=== PATIENT | male | born 1955 | race Caucasian/White ===

== ENCOUNTER → 2018-09-30 | Day surgery (SDC) | payer BC ==
--- NOTE | 2018-09-25 12:14 | Diagnostic Imaging Report ---
EXAMINATION: CHEST 2 VIEWS INDICATION: Foot surgery. Preop. COMPARISON: None FINDINGS: TUBES and LINES: None. LUNGS: Lungs are well inflated. Lungs are clear. There is no evidence of pneumonia or pulmonary edema. PLEURA: No pleural effusion or pneumothorax. HEART AND MEDIASTINUM: The cardiomediastinal silhouette is unremarkable. BONES AND SOFT TISSUES: No acute osseous lesion. Soft tissues are unremarkable. Metallic hardware is seen over the lower cervical spine. Surgical clips in the right axillary region. UPPER ABDOMEN: No free air under the diaphragm. IMPRESSION: No acute thoracic abnormality. Signed by: Dr. Rodrigo Cunningham M.D. on 09/25/2018 12:10 PM
[~2018-09-30] MED LIST: BUPIVACAINE 0.25% 30ML SDV INJ ONE; CEFAZOLIN SOD 2 GM/D5W 50ML 50 ML IV ONE; DURAGESIC1 EAC1; FENOPROFEN CAL600 MG PO; FENTANYL CITRATE/PF 100MCG/2 ML INJ ONE; HYDROMORPHONE 2MG/ML 2 MG/ML ML ONE; JALYN 0.5-0.41 EACH PO; LIBRAX CAPSULE1 EACH PO; LIDOCAINE HCL 2% LOCAL INJ 5 ML SDV VIAL INJ ONE; LISINOPRIL10 MG PO; MIDAZOLAM HCL 2 MG/2 ML VIAL ONE; NEOSTIGMINE 1 MG/ML 10ML VIAL ONE; ONDANSETRON HCL INJ 2MG/ML 2ML 2 MG/ML VIAL ONE; PROPOFOL IV EMULSION 10 MG/ML 20 ML VIAL ONE; SEVOFLURANE INHAL SOLN 250 ML PEN BTL ONE; VENLAFAXINE HCL75 MG PO
--- OUTSIDE RECORDS SUMMARY | 2018-09-30 05:34 | XMS REPORT | Clinical Summary ---
Author Author [facility] Address Unknown Phone Unavailable Care Team Providers Care Geoduck Diver Name Role Phone PCP Unavailable Allergies Not on File Medications Not on file Active Problems Not on file Social History Date Tobacco Use Types Packs/Day Years Used Never Assessed Sex Assigned at Date Recorded Not on file Industry Job Start Date Occupation Not on file Not on file Not on file Travel End Travel History Travel Start No recent travel history available. Last Filed Vital Signs Not on file Plan of Treatment Not on file Results Not on fileafter 09/29/2017
--- OUTSIDE RECORDS SUMMARY | 2018-09-30 05:34 | XMS REPORT ---
Author Author [facility] Address Unknown Phone Unavailable Care Team Providers Care Umbrella Tipper Hand Name Role Phone YAIR HALL Unavailable Unavailable Problems This patient has no known problems. Allergies, Adverse Reactions, Alerts This patient has no known allergies or adverse reactions. Medications This patient has no known medications. Results Test Description Test Time Test Comments Text Results Atomic Results Result Comments CHEST 2 VIEWS 2018-09-25 12:09:00 [place] [address] Patient Name: JAGRUTI ZIMMER MR #: [id number] : 1955 Age/Sex: 62/M Req #: [id number] Adm Physician: Ordered by: YAIR HALL DP Report #: [id number] Location: OR Room/Bed: Procedure: [id number] DX/CHEST 2 VIEWS Exam Date: 09/25/18 Exam Time: 1150 REPORT STATUS: Signed EXAMINATION: CHEST 2 VIEWS INDICATION: Foot surgery. Preop. COMPARISON: None FINDINGS: TUBES and LINES: None. LUNGS: Lungs are well inflated. Lungs are clear. There is no evidence of pneumonia or pulmonary edema. PLEURA: No pleural effusion or pneumothorax. HEART AND MEDIASTINUM: The cardiomediastinal silhouette is unremarkable. BONES AND SOFT TISSUES: No acute osseous lesion. Soft tissues are unremarkable. Metallic hardware is seen over the lower cervical spine. Surgical clips in the right axillary region. UPPER ABDOMEN: No free air under the diaphragm. IMPRESSION: No acute thoracic abnormality. Signed by: Dr. Rodrigo Cunningham M.D. on 09/25/2018 12:10 PM Dictated By: RODRIGO CUNNINGHAM MD, MD 1210 Transcribed By: GEMMA on 09/25/18 1210 COPY TO: YAIR HALL DPM
[2018-09-30 10:41] VITALS: BP 137/86
--- NOTE | 2018-09-30 11:23 | Operative Report ---
DATE OF PROCEDURE: September 30, 2018 PREOPERATIVE DIAGNOSIS: Right 1st metatarsophalangeal joint hallux rigidus, stage III. POSTOPERATIVE DIAGNOSIS: Right 1st metatarsophalangeal joint hallux rigidus, stage III. PROCEDURES 1. First metatarsophalangeal joint fusion, right foot. 2. Application of posterior splint. PATHOLOGY: None. ANESTHESIA: General anesthetic. HEMOSTASIS: Pneumatic thigh tourniquet. ESTIMATED BLOOD LOSS: Less than 10 mL. MATERIALS: 4.0 x 30-mm headless Mini Screw; [place] MTP plate right; 3.0 x 14-mm locking screw x2; 3.0 x 18-mm locking screw x2; 3.0 x 18-mm long locking screw x1; BIO4 viable bone matrix, lot number [id number], unit [id number], expiration 09 April 2020, 5 mL. PROCEDURE IN DETAIL: Under mild sedation, the patient was brought to the operating room and placed on the operating table in the supine position. Following IV sedation, anesthesia was obtained with a general anesthetic. At this point, the right foot was scrubbed, prepped and draped in the usual aseptic manner. The pneumatic thigh tourniquet was inflated to 350 mmHg, and the leg was lowered to the table. Attention was then directed to the dorsal aspect of the right foot, where a linear incision was made overlying the metatarsophalangeal joint. The incision was deepened via sharp and blunt dissection, taking care to retract or cauterize neurovascular structures as necessary. It was deepened down to the level of the joint. A linear capsulotomy was then performed. The capsule was reflected off of the joint. There were noted to be large amounts of DJD. There were noted to be osteophytes all surrounding the joint. There was also noted to be erosion. Utilizing standard technique and with bone reamers, bone rongeurs, and a blade, all nonviable tissue was removed. The joints were prepared for arthrodesis. It was then fenestrated utilizing a 16-mm K-wire. Adequate resection was confirmed clinically and with the use of intraop fluoroscopy. The area was then flushed with copious amount of sterile saline irrigation with the pressure marina porter. Once the joint was fully prepared for arthrodesis, then 5 mL of BIO4 was then used in the joint in order to promote fusion to the area. A K-wire was then used for temporary fixation. There was noted to be adequate compression clinically and with the use of intraop fluoroscopy and adequate position. Then standard AO technique was used. A 4.0 x 30-mm screw was then used with compression around the joint. Then a plate with locking screws was also used for fixation. After all fixation was performed, there were noted to be adequate placement, adequate compression and adequate alignment. The area was then flushed with a copious amount of normal sterile saline solution. The area was then closed with a sterile compressive dressing consisting of Adaptic, 4 x 4's, Kerlix and Webril. A posterior splint was applied and was secured utilizing an Juan bandage. The tourniquet was deflated, and there was noted to be hyperemic response to all the digits. The patient tolerated the procedure and the anesthesia well without complications and was transported to the recovery room with vital signs stable and vascular status intact to both feet. The patient will be discharged home when he meets criteria. He was given instructions to be nonweightbearing, to elevate the foot while at rest, to follow up with me in the office and to call the office if any questions, concerns or any problems arise. Job#: [id number]
== END | disposition home or self-care (01) ==
LOC: OR 05:32
PROVIDERS: ATTEND Podiatrist Foot & Ankle Surgery
DX: M20.21 Hallux rigidus, right foot (principal); M25.774 Osteophyte, right foot; I10 Essential (primary) hypertension; I45.10 Unspecified right bundle-branch block; Z88.1 Allergy status to other antibiotic agents; Z01.810 Encounter for preprocedural cardiovascular examination; Z01.818 Encounter for other preprocedural examination; Z90.2 Acquired absence of lung [part of]; Z87.891 Personal history of nicotine dependence
CPT/HCPCS: 28750; 71046; 93005; C1713 ×2; J0690; J1170; J2001; J2250; J2405; J2704; J2710